=== PATIENT | female | born 1960 | race Hispanic/Latino ===

== ENCOUNTER 2020-06-27 11:43 | Outpatient (CLI) | payer BC ==
--- NOTE | 2020-06-27 11:55 | RAD ---
XR Hip Rt 2-3 View INDICATION: Right hip pain COMPARISON: None FINDINGS: Bones: No acute osseous abnormality. Bone mineralization appears within normal limits. Hip joint: Radiographically normal. SI joints and symphysis pubis: Radiographically normal. Intrapelvic contents: Visualized bowel gas pattern is within normal limits. Surrounding soft tissues: There are mild vascular calcifications seen involving the visualized vascul ature. IMPRESSION: 1. No acute osseous abnormality.
== END 2020-06-27 11:44 | disposition home or self-care (01) ==
LOC: NAV RAD 11:43
PROVIDERS: ATTEND Nurse Practitioner Adult Health
DX: M25.551 Pain in right hip (principal)